=== PATIENT | female | born 1990 | race Caucasian/White ===

== ENCOUNTER → 2020-05-01 10:24 | Outpatient (BNVA) | payer MEDICAID, SELFPAY | PROVIDERS: Family Provider Nurse Practitioner; PCP Nurse Practitioner; Visit Provider Obstetrics & Gynecology | DX: Z32.01 Encounter for pregnancy test, result positive (principal) | CPT/HCPCS: 81025 ==

== ENCOUNTER → 2020-05-24 10:41 | Outpatient (BNVA) | payer SELFPAY | PROVIDERS: Family Provider Nurse Practitioner; PCP Nurse Practitioner; Visit Provider Obstetrics & Gynecology | DX: Z34.90 Encounter for supervision of normal pregnancy, unspecified, unspecified trimester (principal) | CPT/HCPCS: 80307; 81000; 87086 ==

== ENCOUNTER → 2020-05-29 13:53 | Outpatient (BNVA) | payer SELFPAY | PROVIDERS: Family Provider Nurse Practitioner; PCP Nurse Practitioner; Visit Provider Obstetrics & Gynecology | DX: Z34.90 Encounter for supervision of normal pregnancy, unspecified, unspecified trimester (principal); F41.9 Anxiety disorder, unspecified | CPT/HCPCS: 80053; 80307; 81000; 82570; 84156; 84443; 84550; 85027; 86592; 86762; 86787; 86803; 86850; 86900; 87086; 87340 ==

== ENCOUNTER → 2020-06-04 12:01 | Outpatient (BNVA) | payer SELFPAY | PROVIDERS: Family Provider Nurse Practitioner; Visit Provider Obstetrics & Gynecology | DX: O26.899 Other specified pregnancy related conditions, unspecified trimester (principal); Z67.91 Unspecified blood type, Rh negative; F41.9 Anxiety disorder, unspecified; F32.9 Major depressive disorder, single episode, unspecified; O09.90 Supervision of high risk pregnancy, unspecified, unspecified trimester; Z87.59 Personal history of other complications of pregnancy, childbirth and the puerperium; Z12.4 Encounter for screening for malignant neoplasm of cervix | CPT/HCPCS: 81000; 87491; 87591; 88175 ==

== ENCOUNTER → 2020-06-25 00:01 | Outpatient (BNVA) | payer SELFPAY | PROVIDERS: Family Provider Nurse Practitioner; Visit Provider Nurse Practitioner Women's Health | DX: Z34.90 Encounter for supervision of normal pregnancy, unspecified, unspecified trimester (principal); Z87.59 Personal history of other complications of pregnancy, childbirth and the puerperium; Z28.3 Underimmunization status; F41.9 Anxiety disorder, unspecified; F32.9 Major depressive disorder, single episode, unspecified | CPT/HCPCS: 81000; 84156 ==

== ENCOUNTER → 2020-07-31 10:58 | Outpatient (BNVA) | payer SELFPAY | PROVIDERS: Family Provider Nurse Practitioner; Visit Provider Obstetrics & Gynecology | DX: O09.899 Supervision of other high risk pregnancies, unspecified trimester (principal); Z3A.00 Weeks of gestation of pregnancy not specified | CPT/HCPCS: 81000 ==

== ENCOUNTER → 2020-08-21 10:41 | Outpatient (BNVA) | payer MEDICAID, SELFPAY | PROVIDERS: Family Provider Nurse Practitioner; Visit Provider Obstetrics & Gynecology | DX: O09.899 Supervision of other high risk pregnancies, unspecified trimester (principal); Z3A.00 Weeks of gestation of pregnancy not specified | CPT/HCPCS: 81000 ==

== ENCOUNTER → 2020-09-18 12:13 | Outpatient (BNVA) | payer MEDICAID, SELFPAY | PROVIDERS: Family Provider Nurse Practitioner; Visit Provider Nurse Practitioner Women's Health | DX: O09.90 Supervision of high risk pregnancy, unspecified, unspecified trimester (principal); Z3A.00 Weeks of gestation of pregnancy not specified | CPT/HCPCS: 81000; 82950; 85025 ==

== ENCOUNTER → 2020-09-30 12:49 | Outpatient (BNVA) | payer MEDICAID, SELFPAY | PROVIDERS: Family Provider Nurse Practitioner; Visit Provider Obstetrics & Gynecology | DX: O09.90 Supervision of high risk pregnancy, unspecified, unspecified trimester; O09.899 Supervision of other high risk pregnancies, unspecified trimester; F32.9 Major depressive disorder, single episode, unspecified; F41.9 Anxiety disorder, unspecified; Z28.3 Underimmunization status; Z3A.00 Weeks of gestation of pregnancy not specified | CPT/HCPCS: 81000 ==

== ENCOUNTER → 2020-10-16 10:22 | Outpatient (BNVA) | payer MEDICAID, SELFPAY | PROVIDERS: Family Provider Nurse Practitioner; Visit Provider Obstetrics & Gynecology | DX: O09.90 Supervision of high risk pregnancy, unspecified, unspecified trimester (principal); Z3A.00 Weeks of gestation of pregnancy not specified | CPT/HCPCS: 81000 ==

== ENCOUNTER → 2020-10-29 11:36 | Outpatient (BNVA) | payer MEDICAID, SELFPAY | PROVIDERS: Family Provider Nurse Practitioner; Visit Provider Nurse Practitioner Women's Health | DX: O09.90 Supervision of high risk pregnancy, unspecified, unspecified trimester (principal); Z3A.00 Weeks of gestation of pregnancy not specified | CPT/HCPCS: 81000 ==

== ENCOUNTER → 2020-11-13 10:43 | Outpatient (BNVA) | payer MEDICAID, SELFPAY | PROVIDERS: Family Provider Nurse Practitioner; Visit Provider Obstetrics & Gynecology | DX: O09.90 Supervision of high risk pregnancy, unspecified, unspecified trimester (principal) | CPT/HCPCS: 81000; 87081 ==

== ENCOUNTER → 2020-11-21 10:15 | Outpatient (BNVA) | payer MEDICAID, SELFPAY | PROVIDERS: Family Provider Nurse Practitioner; Visit Provider Obstetrics & Gynecology | DX: O09.90 Supervision of high risk pregnancy, unspecified, unspecified trimester (principal); Z3A.00 Weeks of gestation of pregnancy not specified | CPT/HCPCS: 81000 ==

== ENCOUNTER → 2020-11-26 15:23 | Outpatient (BNVA) | payer MEDICAID, SELFPAY | PROVIDERS: Family Provider Nurse Practitioner; Visit Provider Obstetrics & Gynecology | DX: O09.90 Supervision of high risk pregnancy, unspecified, unspecified trimester (principal); Z3A.00 Weeks of gestation of pregnancy not specified | CPT/HCPCS: 81000 ==

== ENCOUNTER → 2020-11-28 09:01 | Outpatient (BNVA) | payer MEDICAID, SELFPAY | PROVIDERS: Family Provider Nurse Practitioner; Visit Provider Obstetrics & Gynecology | DX: O09.90 Supervision of high risk pregnancy, unspecified, unspecified trimester (principal); Z3A.00 Weeks of gestation of pregnancy not specified | CPT/HCPCS: 87635 ==

== ENCOUNTER 2020-12-04 06:40 | Inpatient (IN) | payer MEDICAID, SELFPAY ==
[2020-12-04] VITALS (96 sets, daily range): BP systolic 106–154; BP diastolic 55–100; PULSE 56–130; RESP 18; TEMP 36.1–36.8; O2SAT 94–100; BMI 32.0
[2020-12-04 08:07] LABS: Basophils # 0.1 10^3/uL (0.0-0.1); Basophils % 0.5 %; Eosinophils # 0.1 10^3/uL (0.0-0.8); Eosinophils % 0.7 %; Hematocrit 33.3 % (37.0-47.0); Hemoglobin 11.4 g/dL (11.5-15.3); Lymphocytes # 1.3 10^3/uL (0.8-4.8); Lymphocytes % 12.9 %; Mean Corpuscular HGB Conc 34.2 g/dL (30.0-36.0); Mean Corpuscular Hemoglobin 30.6 pg (28.0-34.0); Mean Corpuscular Volume 89.3 fl (81-99); Mean Platelet Volume 9.8 fL (7.4-10.4); Monocytes # 0.5 10^3/uL (0.2-0.9); Monocytes % 4.9 %; Neutrophils # 8.13 10^3/uL (1.8-7.7); Neutrophils % 79.5 %; Nucleated Red Blood Cells % 0 %; Platelet Count 250 10^3/cmm (130-400); Red Blood Count 3.73 10^6/uL (4.1-5.3); Red Cell Distribution Width 12.4 % (12.1-15.1); White Blood Count 10.2 10^3/uL (4.0-10.0)
[2020-12-04] MEDS: dextrose 5%-lactated ringers 1,000 ML 125 ML IV (08:23)
[2020-12-04] MEDS: oxytocin 30 UNIT/500 ML BAG IV (08:23)
[2020-12-04] MEDS: lactated ringers 1,000 ML 999 ML IV (09:20)
--- NOTE | 2020-12-04 10:44 | P.ANESASSM_ITS ---
Pre-Anesthetic Assessment Pre-Anesthetic Assessment: Height/Weight: Height 1.52 m Weight 74.389 kg Temp Pulse Resp BP Pulse Ox 97.0 F L 72 18 125/73 99 12/04/20 10:16 12/04/20 10:41 12/04/20 10:16 12/04/20 10:40 12/04/20 10:41 Preop Diagnosis: IUP Proposed Procedure: epidural Familial anesthetic complications: none Was Beta Shasha taken within 24 hours: N/A Was Clonidine taken within 24 hours: N/A Social: Social History: No alcohol and No tobacco Exam: Pre-Anes Outpt Exam: alert, oriented x 3, clear to auscultation bilaterally and regular rate & rhythm Airway: Cervical ROM: WNL MP: 2 Dentition: Full Anesthetic Plan: ASA status: 2 Anesthesia: Regional (specify below) Risk of > 500 ml blood loss (7ml/kg in children): Yes, adequate IV access and fluids planned Other Pertinent Information: Patient appeared to have sacral dimple, denied spina bifida or knowledge of tethered cord. has also had 3 previous epidural w/ no issues, therefore wished to proceed Meds/Allergies Current Medications: Current Medications Generic Name Dose Route Start Last Admin Trade Name Freq PRN Reason Stop Dose Admin Oxytocin 30 unit in 500 ml s @ 1 mls/hr 12/04/20 08:00 12/04/20 09:40 Pitocin IV 11 milliunit/min .Q24H SENDY 11 mls/hr Titration Protocol 1 MILLIUNIT/MIN Dextrose/Lactated Ringer's 1,000 mls @ 125 m ls/hr 12/04/20 07:45 12/04/20 10:15 Dextrose 5%-Lact ated Ringers IV 125 mls/hr .Q8H SENDY Infusion Ropivacaine 200 mg in 100 mls @ 13 mls/hr 12/04/20 08:00 12/04/20 10:28 Naropin Premix EPIDURAL 10 mls/hr .Q7H42M SENDY Administration Lactated Ringer's 1,000 mls @ 999 m ls/hr 12/04/20 07:48 12/04/20 09:20 Lactated Ringers IV 999 mls/hr .Q1H1M PRN Administration See label comment s PFSH Anesthesia PFSH: Medical History No pertinent past medical history Denies diabetes, asthma, hypertension, seizures, DVT/PE. PMD: none Surgical History History of ankle surgery (~2013) Right ankle fracture Family History Grandmother Heart disease Paternal Hypertension Maternal and Paternal Grandfather Stroke Maternal Pancreatic cancer paternal Hypertension Maternal and Paternal Mother Hypertension Stroke Thyroid condition Denies family history of Colon cancer Ovarian cancer Diabetes Hyperlipidemia Breast cancer Uterine cancer Female Reproductive History: : 4 Data Anesthesia CBC & Chem 7: 12/04/20 07:20 Other Labs: Laboratory Results - last 48 hr 12/04/20 07:20 WBC 10.2 H RBC 3.73 L Hgb 11.4 L Hct 33.3 L MCV 89.3 MCH 30.6 MCHC 34.2 RDW 12.4 Plt Count 250 MPV 9.8 Neut % (Auto) 79.5 Lymph % (Auto) 12.9 [place] % (Auto) 4.9 Eos % (Auto) 0.7 Baso % (Auto) 0.5 Neut # (Auto) 8.13 H Lymph # (Auto) 1.3 [place] # (Auto) 0.5 Eos # (Auto) 0.1 Baso # (Auto) 0.1 Nucleated RBC % (auto) 0 Nucleated RBCs # 0.0 Cardiac Studies: No Data to Display
--- NOTE | 2020-12-04 10:46 | ANES.PROC ---
Anesthesia Procedures Procedure/Date: 12/04/20 Epidural: Time Out Performed: Yes Consents Signed: Procedure Consent Consent: requested by attending/covering physician, from patient, risks and benefits reviewed and patient agrees to proceed Lumbar Level: L3-L4 Epidural position: sitting Epidural procedure: sterile prep of area, 1% lidocaine to numb the area, 18 g needle, negative for paresthesia passed, neg for paresthesia, test dose given, 1.5% xylocaine 1:200k epi (5 cc), 0.2% Ropivacaine bolus ml (5), placed PCEA, no systemic response, sterile dressing applied, L.U.D. no apparent complications and 0.2% Ropiavacaine @ mls/hr (10) Additional Comments: MINDY at 4 cm, threaded to 10 cm, but aspirated heavily blood-tinged fluid (did not appear to be linn blood), pulled catheter back to 9 cm, with only light-blood tinged aspiration. Gave test dose (3 cc, then 2 cc), no symptoms. Aspirated catheter once more before attaching pump with negative aspiration of heme.
--- NOTE | 2020-12-04 12:35 | PM.OPHPUD ---
Labor & Delivery H&P Update Date of Procedure: December 04, 2020 Date H&P Performed: 12/03/20 H&P update information: I have reviewed H&P completed within last 30 days, I have examined patient prior to procedure and No changes to prior documentation Admission Diagnosis: Preop diagnosis: IUP
[2020-12-04] MEDS: miSOPROStol 200 mcg Tablet 800 MCG PR (14:29)
[2020-12-04] MEDS: methylergonovine 0.2 mg/mL INJ 1 mL IM (14:32)
[2020-12-04] MEDS: carboprost tromethamine 250 mcg/mL Amp IM (14:39)
[2020-12-04] MEDS: ondansetron 2 mg/ML SDV 2 mL 4 MG IVP (14:46)
--- NOTE | 2020-12-04 15:56 | PC.NURSE ---
[address] Trevino at this time, she gave verbal order to put patient routine PP orders in.
[2020-12-04] MEDS: acetaminophen 325 mg Tablet 650 MG PO (16:30)
[2020-12-04] MEDS: ibuprofen 800 mg tablet PO (16:58)
--- NOTE | 2020-12-04 18:04 | PC.NURSE ---
Patient ambulated to restroom at this time no difficulty walking, no dizziness at this time.
--- NOTE | 2020-12-04 18:14 | PM.DELIVERY ---
Delivery Note: Date of delivery: December 04, 2020 - PRE-DELIVERY DIAGNOSIS: 30-year-old 4 para 3-0-0-3 at 39 weeks and 2 days gestation Elective induction GBS negative Anxiety and depression on medication Varicella nonimmune-vaccinate POST-DELIVERY DIAGNOSIS: Vaginal delivery on 12/04/2020 uterine atony which responded to medication PROCEDURE: Vaginal delivery on 12/04/2020 ANESTHESIA: Epidural anesthesia, 2% lidocaine DELIVERING PHYSICIAN: Denia Trevino FACCEFERINO PRE-DELIVERY COURSE: Ms. Oneil is a 30-year-old 4 para 3-0-0-3 at 39 weeks and 2 days gestation who presented to labor and delivery on 12/04/2020 for scheduled elective induction of labor. She denied any new problems since she was last seen and reported occasional contractions but nothing concerning. She did report good movement. On initial evaluation she was 5 cm 60% and -2 station with a category 1 tracing and occasional contractions. Induction was started with Pitocin titrated to a maximum of 11 international units which was then dropped down to 9 and she was marilynn too frequently. With this she started to get uncomfortable and an epidural was placed. She had artificial rupture of membranes at 1145 with clear fluid at which point she was 6 to 7 cm, 80% and -2 station and the head was well applied. tracing remained category 1 and she was comfortable. She made rapid cervical change after this and was fully dilated at 1:50 PM and was +2 station. She was allowed to labor down a little as she was pretty comfortable. DELIVERY NOTE: She was set up in lithotomy position and was pushing effectively. She was noted to be +3 station and continued for scheduled elective induction of labor.pushing well. The head delivered in DEWEY position, no nuchal cord was present. The shoulders and rest of the body followed with her next push. The baby's mouth and nose were suctioned and the baby was placed on the mother's belly. Once cord pulsations stopped the cord was clamped and cut. The placenta delivered spontaneously intact with membranes and was discarded. The fundus was noted to be firm and well contracted initially however once uterine massage was stopped the uterine tone decreased and patient started to bleed. She received Cytotec 800 mcg rectally x1 and a single dose of Hemabate and Methergine and with this and continued uterine massage uterine tone improved and bleeding decreased. The vagina and cervix were inspected and no cervical or sulcal lacerations were noted. The perineum was intact except for a first-degree right labial tear which was repaired with 3-0 Vicryl on an SH in a continuous interlocking fashion. Good approximation and hemostasis was obtained. Baby Jerald jiménez born at 2:15 PM with 8/9, weighing 7 pounds 10 ounces, 3450 g, 20 inches long. Placenta was delivered spontaneously intact with membranes at 2:25 PM. Cotyledons were intact , centrally inserted umbilical cord with 3 vessels noted. Estimated blood loss 550 mL. Complications-uterine atony which responded well to medicine. This documentation was created by [employer] transportation security officer software (known for inherent transportation security officer error). Every effort was made to assure accuracy of transportation security officer. Any obvious errors or omissions should be clarified with the author of the document. Coding Level of Care Code Acute Early Head Start Teacher for Chg Fwd History History History 4 Term 4 Miscarriages/Ectopic 0 0 Living Children 4 Other History: X 4 1--->01/09/2009, female,(Nayely), 6 lbs 14 ozs, 38 wks, epidural, vaginal delivery, delivered by Dr Kaur, at [facility], [place], [place]. Complications: Gestational HTN---> induced 2--->08/04/2013, female,(Vera), 7 lbs 1 ozs, 39 3/7 wks, epidural, vaginal delivery, delivered by Dr Howard, at [facility], [place], [place]. Complications: Gestational Hypertension---> Induced 3---> 02/22/2018, male, (Luke), 6 lbs. 15 oz., 38 weeks and 6 days, induction of labor for gestational hypertension at term. Delivered by Dr. Trevino at [facility]. Intact perineum. Succenturiate placental lobe. Minimal uterine atony which resolved with medication. 4---> 12/04/2020, male, Jerald, 7 pounds 10 ounces, 39 weeks and 2 days elective induction of labor delivered by Dr. Trevino at [facility]. Intact perineum. Uterine atony which resolved with medication.
[2020-12-05] VITALS (7 sets, daily range): BP systolic 105–128; BP diastolic 60–74; PULSE 65–88; RESP 16–18; TEMP 36.7–36.9
[2020-12-05 02:57] LABS: Hematocrit 29.5 % (37.0-47.0); Hemoglobin 10.1 g/dL (11.5-15.3); Mean Corpuscular HGB Conc 34.2 g/dL (30.0-36.0); Mean Corpuscular Hemoglobin 30.4 pg (28.0-34.0); Mean Corpuscular Volume 88.9 fl (81-99); Mean Platelet Volume 9.8 fL (7.4-10.4); Platelet Count 245 10^3/cmm (130-400); Red Blood Count 3.32 10^6/uL (4.1-5.3); Red Cell Distribution Width 12.2 % (12.1-15.1); White Blood Count 16.2 10^3/uL (4.0-10.0)
[2020-12-05] MEDS: prenatal vitamin Capsule 1 CAP PO (09:47)
[2020-12-05] MEDS: docusate sodium 100 mg Capsule PO (09:48)
[2020-12-05] MEDS: ibuprofen 800 mg tablet PO (09:48)
--- NOTE | 2020-12-05 15:37 | P.DS_ITS ---
Discharge Providers BILINGUAL TEACHER AIDE Date of Admission: 12/04/20 06:40 Date of Discharge: 12/06/20 Attending Provider at Admission: Denia Tiwari MD Attending Provider at Discharge: Denia Tiwari MD PRE-DELIVERY DIAGNOSIS: 30-year-old 4 para 3-0-0-3 at 39 weeks and 2 days gestation Elective induction GBS negative Anxiety and depression on medication Varicella nonimmune-vaccinate POST-DELIVERY DIAGNOSIS: Vaginal delivery on 12/04/2020 uterine atony which responded to medication PROCEDURE: Vaginal delivery on 12/04/2020 ANESTHESIA: Epidural anesthesia, 2% lidocaine DELIVERING PHYSICIAN: Denia Trevino FACOG PRE-DELIVERY COURSE: Ms. Oneil is a 30-year-old 4 para 3-0-0-3 at 39 weeks and 2 days gestation who presented to labor and delivery on 12/04/2020 for scheduled elective induction of labor. She denied any new problems since she was last seen and reported occasional contractions but nothing concerning. She did report good movement. On initial evaluation she was 5 cm 60% and -2 station with a category 1 tracing and occasional contractions. Induction was started with Pitocin titrated to a maximum of 11 international units which was then dropped down to 9 and she was marilynn too frequently. With this she started to get uncomfortable and an epidural was placed. She had artificial rupture of membranes at 1145 with clear fluid at which point she was 6 to 7 cm, 80% and -2 station and the head was well applied. tracing remained category 1 and she was comfortable. She made rapid cervical change after this and was fully dilated at 1:50 PM and was +2 station. She was allowed to labor down a little as she was pretty comfortable. DELIVERY NOTE: She was set up in lithotomy position and was pushing effectively. She was noted to be +3 station and continued for scheduled elective induction of labor.pushing well. The head delivered in DEWEY position, no nuchal cord was present. The shoulders and rest of the body followed with her next push. The baby's mouth and nose were suctioned and the baby was placed on the mother's belly. Once cord pulsations stopped the cord was clamped and cut. The placenta delivered spontaneously intact with membranes and was discarded. The fundus was noted to be firm and well contracted initially however once uterine massage was stopped the uterine tone decreased and patient started to bleed. She received Cytotec 800 mcg rectally x1 and a single dose of Hemabate and Methergine and with this and continued uterine massage uterine tone improved and bleeding decreased. The vagina and cervix were inspected and no cervical or sulcal lacerations were noted. The perineum was intact except for a first-degree right labial tear which was repaired with 3-0 Vicryl on an SH in a continuous interlocking fashion. Good approximation and hemostasis was obtained. Baby boy, Jerald born at 2:15 PM with 8/9, weighing 7 pounds 10 ounces, 3450 g, 20 inches long. Placenta was delivered spontaneously intact with membranes at 2:25 PM. Cotyledons were intact , centrally inserted umbilical cord with 3 vessels noted. Estimated blood loss 550 mL. Complications-uterine atony which responded well to medicine. HOSPITAL COURSE: She underwent an uncomplicated vaginal delivery on 12/04/2020. She did well on day 0 and was ambulating well, tolerating regular diet, voiding freely, passing flatus. She was breast-feeding without difficulty and bonding well with her son. She did initially want him circumcised but then later wanted it done as an interval outpatient procedure as they did not want to wait to have the procedure done. Pain was well-controlled with by mouth pain medication. She denied nausea, vomiting, fever, chills, shortness of breath, leg pain. She had moderate vaginal bleeding. On day # 1 she continued to do well with stable vital signs and stable hemoglobin at 10.1. She was discharged home on day 1 in a stable condition, as she desired early discharge. Warning signs for endometritis, mastitis, DVT/PE were reviewed with her. Post delivery activity restrictions were also reviewed with her at all her questions were answered to her satisfaction. Plans on using Nexplanon for contraception and she will be scheduled for this as an outpatient basis. EXAM AT DISCHARGE: Gen.: No acute distress Heart: S1-S2 heard, regular rate and rhythm Lungs: Clear to auscultation bilaterally Abdomen: Soft, fundus firm below umbilicus, Legs: No calf tenderness, trace bilateral pitting pedal edema. CONDITION AT DISCHARGE: Stable This documentation was created by [employer] counterintelligence specialist software (known for inherent counterintelligence specialist error). Every effort was made to assure accuracy of counterintelligence specialist. Any obvious errors or omissions should be clarified with the author of the document. Reason for Visit Reason for Visit: Induction Information Peripartum Data: Infant Delivery Method: Vaginal Physical Exam Urinary Catheter Management^: Short: Cath Placed During This Visit: yes, but has since been removed by the nurse Reason for Continuing Indwelling Catheter: Decision to DC Catheter Urinary Catheter Date of Insertion: 12/04/20 Urinary Catheter Time of Insertion: 10:58 Date Urinary Catheter Removed: 12/04/20 Time Urinary Catheter Discontinued: 14:10 Discharge Data Data Completed and Pending: Labs from last 24 hours 12/05/20 02:25 WBC 16.2 H RBC 3.32 L Hgb 10.1 L Hct 29.5 L MCV 88.9 MCH 30.4 MCHC 34.2 RDW 12.2 Plt Count 245 MPV 9.8 Vitals: Last Vital Signs Temp 98.3 F 12/05/20 09:49 Pulse 88 12/05/20 09:49 Resp 18 12/05/20 09:49 BP 128/60 12/05/20 09:49 Pulse Ox 99 12/04/20 12:16 Discharge Plan Discharge Patient Disposition: Home Condition: Stable Prescriptions: New ibuprofen 800 mg tablet 800 mg PO Q8H Qty: 30 RF: 0 docusate sodium 100 mg Capsule 100 mg PO BID PRN (Reason: constipation) Qty: 30 RF: 0 Continued fluoxetine [Prozac] 20 mg capsule 20 mg PO DAILY Qty: 30 RF: 4 acetaminophen [Tylenol Extra Strength] 500 mg tablet 1,000 mg PO Q6H PRNRF: 0 Discharge Orders: Discharge Order (Routine); Ordered 12/05/20 Ordered By: Denia Tiwari Referrals: Denia Tiwari MD [Physician] - 01/13/21 3:30 pm Patient Instructions: Iron Supplements (By mouth), Vitamins (By mouth), Lanolin (On the skin), Expression, Collection and Storage of Breast Milk (GEN), and Nipple Soreness (ED), and Breast Engorgement (GEN), Vaginal Delivery (GEN), Bleeding (GEN), OB Discharge Report, OB Food/Drug Interaction Guide, Opioid Safety, OB Home Care, OB Vaginal Deliveries - [facility], Abnormal Bleeding, Depression Activity Restrictions/Additional Instructions: Pelvic rest for 6 weeks, no heavy lifting for 6 weeks, 6-week visit with Dr. Trevino Discharge Attestations BILINGUAL TEACHER AIDE Time Spent in Discharge Care*: greater than 30 min Coding Level of Care Code Acute Char Filter Operator for Obdulia Morales
== END 2020-12-05 16:50 | disposition home or self-care (01) | DRG 807 ==
PROVIDERS: Admitting Provider Obstetrics & Gynecology; Visit Provider Obstetrics & Gynecology
DX: O13.4 Gestational [pregnancy-induced] hypertension without significant proteinuria, complicating childbirth (principal); Z37.0 Single live birth; O99.344 Other mental disorders complicating childbirth; F41.8 Other specified anxiety disorders; O70.0 First degree perineal laceration during delivery; Z3A.39 39 weeks gestation of pregnancy
CPT/HCPCS: 36415; 51702; 59025; 59409; 84315; 85025; 85027; 96372; J2210; J2405; J2795

== ENCOUNTER → 2021-01-14 14:52 | Outpatient (BNVA) | payer MEDICAID, SELFPAY | PROVIDERS: Visit Provider Obstetrics & Gynecology | DX: Z30.9 Encounter for contraceptive management, unspecified (principal) | CPT/HCPCS: 81025 ==

== ENCOUNTER 2023-01-10 12:13 | Emergency (ER) | payer MEDICAID, SELFPAY ==
[2023-01-10 12:28] VITALS: BP 137/90; PULSE 98; RESP 14; O2SAT 98
--- NOTE | 2023-01-10 13:01 | XRR_ITS ---
PROCEDURE INFORMATION: Exam: XR Left Finger(s) Exam date and time: 01/10/2023 1:18 PM Age: 32 years old Clinical indication: Injury or trauma; Other: Cut; Laceration; Left; Index finger TECHNIQUE: Imaging protocol: Radiologic exam of the left fingers. Views: Minimum 2 views. COMPARISON: No relevant prior studies available. FINDINGS: Bones/joints: Negative for acute bony abnormality. Soft tissues: Soft tissue edema is seen in the index finger. There is no evidence of radiodense foreign body. XR/XR finger LT min 2V [id number] IMPRESSION: 1. No acute bone abnormality. 2. Index finger soft tissue laceration and edema. 3. No radiodense foreign body
--- NOTE | 2023-01-10 13:47 | W.ED.WOUNDLC ---
HPI - Wound/Laceration General: Chief Complaint: Wound/Laceration Stated Complaint: Left hand finger lac Time Seen by Provider: 01/10/23 12:50 History of Present Illness: Patient is a 32-year-old female who presents to the emergency department for evaluation of a laceration to the distal end of her left second finger. Patient reports that she was cutting cabbage when she accidentally slipped and lacerated the distal end of her left index finger. Admits to a mild tingling sensation to the distal end of the ipsilateral finger. Admits to a moderate amount of bleeding at onset of injury that is since been controlled with compression. Patient reports that she is not up-to-date on her tetanus prophylaxis. Ms. to full range of motion in her left hand and fingers. No other complaints at this time. Associated symptoms: Denies chills, fever(s), nausea or vomiting Review of Systems General: Reports: 10 or more systems reviewed and unremarkable except in HPI and below Const: Denies: fever(s) or chills Eyes: Denies: change in vision or blurry vision Card: Denies: chest pain or palpitations Resp: Denies: dyspnea GI: Denies: abdominal pain, nausea, vomiting, diarrhea or constipation : Denies: dysuria or hematuria Musc: Reports: other (Admits to a laceration.) Skin/Breast: Denies: rash Neuro: Reports: other (Admits to a tingling sensation to the distal end of the left index finger) [facility] ED PFSH: Medical History No pertinent past medical history Denies diabetes, asthma, hypertension, seizures, DVT/PE. PMD: none Surgical History History of ankle surgery (~2013) Right ankle fracture Family History Grandmother Heart disease Paternal Hypertension Maternal and Paternal Grandfather Stroke Maternal Pancreatic cancer paternal Hypertension Maternal and Paternal Mother Hypertension Stroke Thyroid condition Denies family history of Colon cancer Ovarian cancer Diabetes Hyperlipidemia Breast cancer Uterine cancer Physical Exam Const: COMMON NORMALS: no acute distress, patient oriented x3 and alert HENMT: COMMON NORMALS: normocephalic and atraumatic HEAD & SCALP: normocephalic and atraumatic Eye: COMMON NORMALS: Equal, round and reactive pupils present, EOMs intact bilaterally and conjunctivae normal CONJUNCTIVA: Yes conjunctivae normal PUPIL: Yes Equal, round and reactive pupils present Neck/C-Spine: COMMON NORMALS: full ROM Chest: COMMONS NORMALS: normal inspection of the chest Resp: COMMON NORMALS: normal respiratory effort, No retractions and No use of accessory muscles Cardio: COMMON NORMALS: regular rate RATE: regular rate PERIPHERAL PULSES: other (2+ radial pulse left wrist.) Extremity: OTHER: Approximately 1 cm laceration is noted at the distal end of the left index finger. The laceration does cut through the distal end of the fingernail. The laceration is shallow and the entirety the wound can be visualized. Bleeding currently controlled in the emergency department. Patient has full passive and active range of motion of the left second finger. Moving all other bilateral upper and lower extremities without weakness or deficit. Neuro: COMMON NORMALS: patient oriented x3 SENSORIUM/ORIENTATION: Yes alert OTHER: Sensation intact in the entirety of the left index finger. Procedures Laceration Laceration 1: Site: hand (Left index finger) Side (If applicable): left Size (cm): 1 Description: linear Local Anesthetic: lidocaine 1% Amount of anesthesia used (mL): 2 Pre-repair: wound explored, irrigated extensively and deep structures intact Skin layer closed with: vicryl Size (cm): 4-0 Number of sutures: 3 Technique: simple, interrupted Course Vital Signs: Vital signs: Vital Signs Pulse Rate 98 01/10/23 12:28 Respiratory Rate 14 01/10/23 12:28 Blood Pressure 137/90 01/10/23 12:28 Pulse Oximetry 98 01/10/23 12:28 Oxygen Delivery Me thod Room Air 01/10/23 12:28 MDM - Wound/Laceration Medical Decision Making On physical examination patient is nontoxic and in no acute distress. Vital signs remained stable throughout the ED course. Patient is neurovascular intact. On exam the laceration showed no evidence of tendon damage, foreign body, or nerve damage. The laceration was closed in the emergency department without any difficulties. Tetanus updated in the emergency department. Patient was instructed over wound care and return to the emergency department if signs of infection should occur. A prescription of Keflex was sent to the patient's pharmacy be picked up. Take medication as prescribed. Patient stated understanding of all discharge instructions and was agreeable to plan of care. Differential diagnosis includes but is not limited to laceration, abrasion, retained foreign body, contusion Lab Data Radiology Impressions Finger X-Ray 01/10/23 13:01 IMPRESSION: 1. No acute bone abnormality. 2. Index finger soft tissue laceration and edema. 3. No radiodense foreign body All radiology interpretation(s) finalized by discharge Discharge Plan Discharge Patient Disposition: Home Clinical Impression: Finger laceration Condition: Stable Prescriptions: New cephalexin 500 mg capsule 500 mg PO TID 7 Days Qty: 21 0RF Discharge Orders: Discharge ED (Routine); Ordered 01/10/23 Ordered By: Andrey Pepper Patient Instructions: Laceration (ED) Activity Restrictions/Additional Instructions: Tylenol and ibuprofen as needed for pain. Wash the area twice daily with soap and water and apply antibiotic ointment. Antibiotic as prescribed. See handout over generalized instructions. The sutures will dissolve on their own. Call your primary care provider tomorrow with an update of your symptoms and to schedule an appointment for further management/evaluation. Return to the emergency department for any rapid or worsening symptoms to include but not limited to redness to the affected area, red streaking, purulent drainage, fever, chills, nausea, vomiting, or as needed Coding Level of Care Code ED Camp Counselor for Obdulia Morales
[2023-01-10] MEDS: lidocaine 1% INJ 10 mL (per mL) INJECTION (14:39)
[2023-01-10] MEDS: neomycin-poly-bacitracin oint 28 gm 1 APPLIC TOPICAL (14:39)
[2023-01-10] MEDS: tetanus-dipt-pertussis 0.5 mL SDV IM (14:48)
== END 2023-01-10 14:50 | disposition home or self-care (01) ==
PROVIDERS: Emergency Provider Physician Assistant
DX: S61.211A Laceration without foreign body of left index finger without damage to nail, initial encounter (principal); W26.0XXA Contact with knife, initial encounter; Y93.G1 Activity, food preparation and clean up; Z23 Encounter for immunization
CPT/HCPCS: 12001; 73140; 90471; 90715; 99283